=== PATIENT | male | born 1980 | race Caucasian/White ===

== ENCOUNTER → 2023-04-07 14:25 | Outpatient (CLI) | payer OTHER, SELFPAY ==
--- NOTE | ~2023-04-07 | XR_ITS ---
EXAM: XR knee RT min 4V DATE: 04/07/2023 14:47 HISTORY: M25.561-Pain in right knee/pt. states knee locks up pops . COMPARISON: None available. FINDINGS: Normal mineralization. No fracture or dislocation. No lytic or blastic lesion. Moderate me dial joint space narrowing. Mild tricompartmental osteophytosis. Quadriceps enthesopathy. No erosion or periosteal change. Soft tissues within normal limits. IMPRESSION: Tricompartmental right knee osteoarthritis, moderate in the medial compartment. Reviewed, dictated and finalized at location K.
== END ==
PROVIDERS: PCP Nurse Practitioner Family; Visit Provider Nurse Practitioner Family
DX: M17.11 Unilateral primary osteoarthritis, right knee (principal)
CPT/HCPCS: 73564